=== PATIENT | male | born 1940 | race Caucasian/White ===

== ENCOUNTER 2016-10-23 11:01 | Emergency (ER) | payer OTHER ==
[~2016-10-23] VITALS: Ht 185.4 cm; Wt 112.0 kg
[2016-10-23] VITALS (17 sets, daily range): BP systolic 99–141; BP diastolic 56–82; PULSE 63–78; RESP 15–17; TEMP 77.8–98.2; O2SAT 95–100
[2016-10-23] MEDS ORDERED: ONDANSETRON HCL 4 MG/2 ML VIAL IVP ONE (11:15)
--- NOTE | 2016-10-23 11:26 | PD ---
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 He states while waiting for his transfusion there is issues with insurance and he became stressed out and began having central chest pressure. It did not radiate. He' s had some associated nausea. He has reports of some dyspnea with this as well. It was not exertional. He takes baby aspirin nightly, was not given any nitroglycerin or other medications by EMS. This self resolved. He currently has nausea but denies any other symptoms. He has chronic pedal edema without any acute worsening. History of CABG 5. Last hemoglobin was performed last week and was 7.9. Dr. Zimmer his oncologist has been trying to decrease the transfusions and the patient has had dizziness/lightheadedness without syncope, DYKES and fatigue. No acute worsening. He denies any bruising or hematochezia or melena. Patient denies fever cough and respiratory infectious symptoms. PFSH Past Medical History Hx Anticoagulant Therapy: Yes (81 MG ASA ) Cardiovascular Problems: Yes (BYPASS ) Chemotherapy: Yes (07/2016) ?: Not Social History Tobacco Use: No Allergies-Medications (Allergen,Severity, Reaction): Coded Allergies: No Known Allergies (Unverified , 10/23/16) Reported Meds & Prescriptions Reported Meds & Active Scripts Active Reported Zinc Unknown Strength Tab Unknown Dose PO 2XWEEK Vitamin D3 (Cholecalciferol) Unknown Strength Tab Unknown Dose PO 2XWEEK Vitamin C (Ascorbic Acid) Unknown Strength Tab Unknown Dose PO 2XWEEK Vitamin B-12 (Cyanocobalamin) Unknown Strength Tab Unknown Dose PO 2XWEEK Exjade (Deferasirox) Unknown Strength Tab Unknown Dose PO DAILY Do not chew/swallow tablets whole. Completely disperse tablets in water, orange or apple juice (use 3.5 ounces for total doses <1 g; 7 ounces for doses =1 g). Linzess (Linaclotide) 145 Mcg Cap 145 Mcg PO DAILY Furosemide 40 Mg Tab 40 Mg PO DAILY PRN Trazodone (Trazodone HCl) 100 Mg Tab 100 Mg PO HS Tamsulosin (Tamsulosin HCl) 0.4 Mg Cap 0.4 Mg PO HS Pravastatin 20 Mg Tab 20 Mg PO HS Nitrostat SL (Nitroglycerin) 0.4 Mg Subl 0.4 Mg SL DIRECTED PRN 1 tablet under the tongue as needed for chest pain. Repeat every 5 minutes for a total of 3 DOSES or call 911 if NO relief. Isosorbide Mononitrate ER (Isosorbide Mononitrate) 30 Mg Corbin 30 Mg PO DAILY Dexilant (Dexlansoprazole) 60 Mg Cap 60 Mg PO DAILY Cipro (Ciprofloxacin HCl) 250 Mg Tab 250 Mg PO DAILY Aspirin 81 Mg Tabdr 81 Mg PO HS Review of Systems Except as stated in HPI: all other systems reviewed are Neg Physical Exam Narrative GENERAL: Well-developed and well-nourished adult male in no acute distress. SKIN: Warm and dry. Good turgor without tenting. HEAD: Normocephalic and atraumatic. EYES: PERRL bilaterally, 5mm. EOMI bilaterally. Paleness of the bilateral conjunctiva. No injection or icterus present. No proptosis. Lids without edema or erythema. ENT: Buccal mucosa pink and moist. Oropharynx free of erythema, tonsillar hypertrophy, masses, swelling, asymmetry and exudates. Uvula midline and airway patent. NECK: Supple, no midline tenderness, crepitus or step-offs. Trachea midline, no JVD. No cervical or facial lymphadenopathy. CARDIOVASCULAR: Regular rate and rhythm without murmurs, rubs, clicks or gallops. Radial and dorsalis pedis pulses 2+ bilaterally. Bilateral 1+ pedal edema. RESPIRATORY: Clear to auscultation bilaterally with symmetrical rise and fall, no distress or use of accessory muscles. GASTROINTESTINAL: Non-tender, non-distended. Normal bowel sounds all 4 quadrants. No masses or organomegaly present. MUSCULOSKELETAL: Patient freely moving all four extremities spontaneously. Extremities without clubbing, cyanosis, or edema. No obvious deformities. NEUROLOGIC: CN II-XII grossly intact. Awake and alert. Motor grossly within normal limits. Normal speech. PSYCHIATRIC: Appropriate mood and affect; insight and judgment normal. Data Data Last Documented VS Vital Signs Date Time Temp Pulse Resp B/P Pulse Ox O2 Delivery O2 Flow Rate FiO2 10/23/16 18:30 97.8 70 16 121/76 98 Nasal Cannula 2 Orders Electrocardiogram (10/23/16 ) Type And Screen (10/23/16 11:14) Ondansetron Inj (Zofran Inj) (10/23/16 11:15) B-Type Natriuretic Peptide (10/23/16 11:14) Ckmb (Isoenzyme) Profile (10/23/16 11:14) Complete Blood Count With Diff (10/23/16 11:14) Comprehensive Metabolic Panel (10/23/16 11:14) Magnesium (Mg) (10/23/16 11:14) Prothrombin Time / Inr (Pt) (10/23/16 11:14) Act Partial Throm Time (Ptt) (10/23/16 11:14) Troponin I (10/23/16 11:14) Lipase (10/23/16 11:14) Ecg Monitoring (10/23/16 11:14) Bilateral Bp Monitoring (10/23/16 11:14) Iv Access Insert/Monitor (10/23/16 11:14) Oximetry (10/23/16 11:14) Chest, Pa & Lat (10/23/16 11:14) Red Blood Cells (Rbc) (10/23/16 12:46) Blood Product Administration .UPON TRANSFUSION (10/23/16 12:46) Sodium Chlor 0.9% 250 Ml Inj (Ns 250 Ml (10/23/16 13:00) Ondansetron Inj (Zofran Inj) (10/23/16 13:00) Diet 2000 Ada Cons Carb (10/23/16 Dinner) Troponin I (10/23/16 14:30) Ckmb (Isoenzyme) Profile (10/23/16 14:30) Troponin I (10/23/16 17:12) Electrocardiogram (10/23/16 ) Heparin Central Flush (Heparin Central F (10/23/16 19:45) Labs Laboratory Tests Test 10/23/16 10/23/16 10/23/16 10/23/16 11:10 11:30 12:50 14:07 Blood Type A POSITIVE A POSITIVE Antibody Screen NEGATIVE Blood Bank Comment White Blood Count 3.1 TH/MM3 Red Blood Count 2.45 MIL/MM3 Hemoglobin 6.9 GM/DL Hematocrit 19.8 % Mean Corpuscular Volume 80.9 FL Mean Corpuscular Hemoglobin 28.1 PG Mean Corpuscular Hemoglobin 34.7 % Concent Red Cell Distribution Width 14.7 % Platelet Count 257 TH/MM3 Mean Platelet Volume 9.0 FL Neutrophils (%) (Auto) 33.7 % Lymphocytes (%) (Auto) 50.0 % Monocytes (%) (Auto) 11.7 % Eosinophils (%) (Auto) 3.9 % Basophils (%) (Auto) 0.7 % Neutrophils # (Auto) 1.1 TH/MM3 Lymphocytes # (Auto) 1.6 TH/MM3 Monocytes # (Auto) 0.4 TH/MM3 Eosinophils # (Auto) 0.1 TH/MM3 Basophils # (Auto) 0.0 TH/MM3 CBC Comment DIFF FINAL Differential Comment Prothrombin Time 11.5 SEC Prothromb Time International 1.0 RATIO Ratio Activated Partial 29.6 SEC Thromboplast Time Sodium Level 140 MEQ/L Potassium Level 3.9 MEQ/L Chloride Level 106 MEQ/L Carbon Dioxide Level 23.9 MEQ/L Anion Gap 10 MEQ/L Blood Urea Nitrogen 22 MG/DL Creatinine 1.33 MG/DL Estimat Glomerular Filtration 52 ML/MIN Rate Random Glucose 108 MG/DL Calcium Level 8.6 MG/DL Magnesium Level 2.3 MG/DL Total Bilirubin 0.8 MG/DL Aspartate Amino Transf 11 U/L (AST/SGOT) Alanine Aminotransferase 28 U/L (ALT/SGPT) Alkaline Phosphatase 87 U/L Total Creatine Kinase 60 U/L Troponin I LESS THAN 0.02 NG/ML B-Type Natriuretic Peptide 181 PG/ML Total Protein 6.3 GM/DL Albumin 3.6 GM/DL Lipase 85 U/L Crossmatch Leukocyte-Reduced Red Blood Cells Test 10/23/16 10/23/16 14:12 17:50 Total Creatine Kinase 55 U/L Troponin I LESS THAN 0.02 LESS THAN 0.02 NG/ML NG/ML [facility] Medical Decision Making Medical Screen Exam Complete: Yes Emergency Medical Condition: Yes Differential Diagnosis Symptomatic anemia versus ACS versus CHF versus arrhythmia versus hypoglycemia versus pneumonia Narrative Course Patient 76-year-old male with history of CAD and MDS who is brought by EMS after he was waiting for a blood transfusion for symptomatic anemia and developed chest pain and shortness of breath. Some nausea as well which is still present, all the other symptoms have resolved. Last hemoglobin was 7.9 week prior. He denies any bleeding or easy bruising. Aspirin 81 mg daily. He is not tachycardic. BP is 108/59, an MAP of 75. His EKG shows PACs and PVCs with RBBB. No ST elevations. There is no prior ECG for comparison. We're type and screen, CBC, lipase, troponin, CK-MB, BMP and chest x-ray. CBC shows H &H 6.9/19.8. CBC 3.1. Platelets 257. I spoke with Dr. Zimmer the patient's oncologist who recommends 1 unit of PRBCs nonirradiated. He states that from a hematology perspective the patient is able to be discharged with follow-up outpatient, patient has an appointment in 3 days. CK-MB normal, troponin less than 0.02. BNP 181. Chest x-ray shows mild Cardiomegaly with No Signs of Overt Heart Failure. BUN 22, Creatinine 1.33, Glucose 108. Discussed these results with the patient and recommended admission given his history of CAD with chest pressure and dyspnea. Discussed with Dr. Woo as well who believes this is reasonable. The patient states that these are symptoms he frequently gets with his anemia and he is not concerned and does not want to be admitted. I stated the patient that this certainly have some of these symptoms with his anemia however failure to stay for admission results and or permanent disability if he were having a early NE. Hemostasis understanding and is capable of making this decision. He did agree to trend his values as we are still waiting for his continued to be transfused. Repeat troponin is still less than 0.02. EKG shows no changes. He finished the unit and still declines admission. Will return if develops new or worsening symptoms.See discharge paperwork for further instructions. The plan was discussed with the patient who acknowledged their understanding and agreement. Reinforced the follow-up with primary care is critically important. Patient instructed on emergent conditions that should prompt return to ED. Diagnosis Primary Impression: Symptomatic anemia Additional Impressions: Chest pain Qualified Code: R07.9 - Chest pain, unspecified type Myelodysplastic syndrome Patient Instructions: Anemia (ED), Chest Pain (ED), General Instructions Additional Instructions: Continue your home medications as prescribed Follow-up with your oncologist/electronic parts designer on as scheduled Follow-up with her culture manager in 1-2 days Return to the ED for any acute worsening of symptoms or any chest pain, shortness of breath or dizziness Disposition: 01 DISCHARGE HOME Condition: Stable Nabor Goldstein III Oct 23, 2016 11:26
--- NOTE | 2016-10-23 12:11 | RADRPT ---
EXAM DATE/TIME: 10/23/2016 12:04 [facility] COMPARISON: No previous studies available for comparison. INDICATIONS: Short of breath with chest pains. Prior CABG MEDICAL HISTORY: Myocardial infarction. SURGICAL HISTORY: CABG. Infusaport right side. ENCOUNTER: Initial ACUITY: 3 days PAIN SCORE: 8/10 LOCATION: Bilateral chest FINDINGS: Infusaport is in good position. Heart is enlarged. Pulmonary vascularity is normal. There is no al veolar consolidation, pleural effusion or pneumothorax. Sternal wires from previous median sternotom y are noted. CONCLUSION: Evidence for previous bypass. Mild compensated cardiomegaly, negative for an acute process. Sagar Vuong MD FACR on October 23, 2016 at 12:05 Board Certified Radiologist. This report was verified electronically.
[2016-10-23 12:29] LABS: AUTOMATED NEUTROPHIL # 1.1 TH/MM3 (1.8-7.7); BASOPHIL % 0.7 % (0.0-2.0); EOSINOPHIL # 0.1 TH/MM3 (0-0.4); EOSINOPHIL % 3.9 % (0.0-4.0); HEMO FLAGS DIFF FINAL; LYMPHOCYTE # 1.6 TH/MM3 (1.0-4.8); MEAN CELL VOLUME 80.9 FL (80.0-100.0); MEAN CORPUSCULAR HEMOGLOBIN 28.1 PG (27.0-34.0); MEAN CORPUSCULAR HGB CONC 34.7 % (32.0-36.0); MONO % 11.7 % (0.0-8.0); NEUT % 33.7 % (16.0-70.0); PLATELET COUNT 257 TH/MM3 (150-450); RED BLOOD COUNT 2.45 MIL/MM3 (4.50-5.90); RED CELL DISTRIBUTION WIDTH 14.7 % (11.6-17.2); WHITE BLOOD COUNT 3.1 TH/MM3 (4.0-11.0)
[2016-10-23 12:34] LABS: HEMATOCRIT 19.8 % (39.0-51.0)
[2016-10-23] MEDS ORDERED: ASPI1TAB69 PO (12:37)
[2016-10-23] MEDS ORDERED: DEXI60CA PO (12:37)
[2016-10-23] MEDS ORDERED: ISOS30TA3 PO (12:37)
[2016-10-23] MEDS ORDERED: CIPR250T52 PO (12:37)
[2016-10-23] MEDS ORDERED: NITR0.4S SL (12:37)
[2016-10-23 12:39] LABS: APTT (PATIENT) 29.6 SEC (24.3-30.1); PROTHROMBIN TIME - PATIENT 11.5 SEC (9.8-11.6)
[2016-10-23] MEDS ORDERED: TRAZ100T4 PO (12:39)
[2016-10-23] MEDS ORDERED: PRAV20TA2 PO (12:39)
[2016-10-23] MEDS ORDERED: TAMS0.4C4 PO (12:39)
[2016-10-23 12:45] LABS: ANION GAP 10 MEQ/L (5-15); AST (GOT) 11 U/L (15-37); BICARBONATE 23.9 MEQ/L (21.0-32.0); BLOOD UREA NITROGEN 22 MG/DL (7-18); CHLORIDE 106 MEQ/L (98-107); GLOMERULAR FILTRATION RATE 52 ML/MIN (>89); MAGNESIUM 2.3 MG/DL (1.5-2.5); POTASSIUM 3.9 MEQ/L (3.5-5.1); SODIUM (NA) 140 MEQ/L (136-145)
[2016-10-23 12:50] LABS: ALKALINE PHOSPHATASE 87 U/L (45-117); ALT (GPT) 28 U/L (12-78); TOTAL BILIRUBIN ADULT 0.8 MG/DL (0.2-1.0)
[2016-10-23] MEDS ORDERED: LINA145C PO (12:51)
[2016-10-23] MEDS ORDERED: FURO40TA PO (12:51)
[2016-10-23] MEDS ORDERED: SODIUM CHLOR 0.9% 250 ML INJ 250 ML IV ONE (13:00)
[2016-10-23] MEDS ORDERED: ONDANSETRON HCL 4 MG/2 ML VIAL IV PUSH ONE (13:00)
[2016-10-23 13:07] LABS: CREATINE KINASE 60 U/L (39-308)
[2016-10-23] MEDS ORDERED: [UNRECOGNIZED DRUG - CODE] PO (13:12)
[2016-10-23] MEDS ORDERED: VITA250T5 PO (13:13)
[2016-10-23] MEDS ORDERED: VITA500T PO (13:14)
[2016-10-23] MEDS ORDERED: ZINC25TA PO (13:15)
[2016-10-23] MEDS ORDERED: VITA100018 PO (13:15)
[2016-10-23 14:45] LABS: CREATINE KINASE 55 U/L (39-308)
--- NOTE | 2016-10-23 15:14 | PD ---
Physical Exam Date Seen by Provider: Oct 23, 2016 Time Seen by Provider: 13:30 Narrative I, Dr. Silva, have reviewed the advance practice practitioner's documentation and am in agreement, met with the patient face to face, made the diagnosis, and the medical decision making was done by me. *My assessment and Findings: Patient seen and evaluated with PA, please see PA for further details. Here with chest discomfort and shortness of breath, known anemia which is chronic in nature, patient is post to be getting a blood transfusion. Lab work shows significant anemia and PRBCs have been ordered for the patient. Case was discussed with patient's oncologist. Metabolic panel is unremarkable. Cardiac enzymes are negative. EKG did not show any signs of acute changes. Patient does not appear to be in any distress in the ER and vital signs are stable. In addition, due to his chest discomfort and shortness of breath symptoms, we have offered to admit the patient for further evaluation of his chest pain symptoms. Patient at this time states that he feels better and does not want further workup regarding this issue right now. He suspects is secondary to his anemia. We have talked him regarding the fact that underlying cardiac processes cannot be ruled out. Patient states understanding. He should return for any worsening in symptoms or new issues as needed. Data Data Last Documented VS Vital Signs Date Time Temp Pulse Resp B/P Pulse Ox O2 Delivery O2 Flow Rate FiO2 10/23/16 13:21 65 16 123/71 100 Nasal Cannula 2 10/23/16 11:06 97.8 Orders Electrocardiogram (10/23/16 ) Type And Screen (10/23/16 11:14) Ondansetron Inj (Zofran Inj) (10/23/16 11:15) B-Type Natriuretic Peptide (10/23/16 11:14) Ckmb (Isoenzyme) Profile (10/23/16 11:14) Complete Blood Count With Diff (10/23/16 11:14) Comprehensive Metabolic Panel (10/23/16 11:14) Magnesium (Mg) (10/23/16 11:14) Prothrombin Time / Inr (Pt) (10/23/16 11:14) Act Partial Throm Time (Ptt) (10/23/16 11:14) Troponin I (10/23/16 11:14) Lipase (10/23/16 11:14) Ecg Monitoring (10/23/16 11:14) Bilateral Bp Monitoring (10/23/16 11:14) Iv Access Insert/Monitor (10/23/16 11:14) Oximetry (10/23/16 11:14) Chest, Pa & Lat (10/23/16 11:14) Red Blood Cells (Rbc) (10/23/16 12:46) Blood Product Administration .UPON TRANSFUSION (10/23/16 12:46) Sodium Chlor 0.9% 250 Ml Inj (Ns 250 Ml (10/23/16 13:00) Ondansetron Inj (Zofran Inj) (10/23/16 13:00) Diet 2000 Ada Cons Carb (10/23/16 Dinner) Troponin I (10/23/16 14:30) Ckmb (Isoenzyme) Profile (10/23/16 14:30) Labs Laboratory Tests Test 10/23/16 10/23/16 10/23/16 10/23/16 11:10 11:30 12:50 14:07 Blood Type A POSITIVE A POSITIVE Antibody Screen NEGATIVE Blood Bank Comment White Blood Count 3.1 TH/MM3 Red Blood Count 2.45 MIL/MM3 Hemoglobin 6.9 GM/DL Hematocrit 19.8 % Mean Corpuscular Volume 80.9 FL Mean Corpuscular Hemoglobin 28.1 PG Mean Corpuscular Hemoglobin 34.7 % Concent Red Cell Distribution Width 14.7 % Platelet Count 257 TH/MM3 Mean Platelet Volume 9.0 FL Neutrophils (%) (Auto) 33.7 % Lymphocytes (%) (Auto) 50.0 % Monocytes (%) (Auto) 11.7 % Eosinophils (%) (Auto) 3.9 % Basophils (%) (Auto) 0.7 % Neutrophils # (Auto) 1.1 TH/MM3 Lymphocytes # (Auto) 1.6 TH/MM3 Monocytes # (Auto) 0.4 TH/MM3 Eosinophils # (Auto) 0.1 TH/MM3 Basophils # (Auto) 0.0 TH/MM3 CBC Comment DIFF FINAL Differential Comment Prothrombin Time 11.5 SEC Prothromb Time International 1.0 RATIO Ratio Activated Partial 29.6 SEC Thromboplast Time Sodium Level 140 MEQ/L Potassium Level 3.9 MEQ/L Chloride Level 106 MEQ/L Carbon Dioxide Level 23.9 MEQ/L Anion Gap 10 MEQ/L Blood Urea Nitrogen 22 MG/DL Creatinine 1.33 MG/DL Estimat Glomerular Filtration 52 ML/MIN Rate Random Glucose 108 MG/DL Calcium Level 8.6 MG/DL Magnesium Level 2.3 MG/DL Total Bilirubin 0.8 MG/DL Aspartate Amino Transf 11 U/L (AST/SGOT) Alanine Aminotransferase 28 U/L (ALT/SGPT) Alkaline Phosphatase 87 U/L Total Creatine Kinase 60 U/L Troponin I LESS THAN 0.02 NG/ML B-Type Natriuretic Peptide 181 PG/ML Total Protein 6.3 GM/DL Albumin 3.6 GM/DL Lipase 85 U/L Crossmatch Leukocyte-Reduced Red Blood Cells Test 10/23/16 14:12 Total Creatine Kinase 55 U/L Troponin I LESS THAN 0.02 NG/ML [facility] Medical Record Reviewed: Yes Supervised Visit with DAVID: Yes Diagnosis Primary Impression: Symptomatic anemia Disposition: 01 DISCHARGE HOME Condition: Stable Martha Silva MD Oct 23, 2016 15:14
--- NOTE | 2016-10-24 14:15 | EKG ---
Date Performed: 10/23/2016 Time Performed: 17:46:44 PTAGE: 76 years EKG: Sinus rhythm WITH FIRST DEGREE AV BLOCK RIGHT BUNDLE BRANCH BLOCK ABNORMAL ECG Since PREVIOUS TRACING , no significant change noted PREVIOUS TRACIN10/23/2016 11.05 DOCTOR: Hector Julio Interpretating Date/Time 10/24/2016 14:06:49
--- NOTE | 2016-10-24 14:15 | EKG ---
Date Performed: 10/23/2016 Time Performed: 11:05:42 PTAGE: 76 years EKG: Sinus rhythm WITH OCCASIONAL VENTRICULAR PREMATURE COMPLEXES WITH MARKED RHYTHM IRREGULARITY, POSSIBLE NON-CONDUC DMITRY PAC, SA BLOCK, AV BLOCK, OR SINUS PAUSE RIGHT BUNDLE BRANCH BLOCK ABNORMAL ECG NO PREVIOUS TRACING DOCTOR: Hector Julio Interpretating Date/Time 10/24/2016 14:06:42
== END 2016-10-23 20:31 | disposition home or self-care (01) ==
LOC: NEPC 11:01
DX: D64.89 Other specified anemias (principal); R07.9 Chest pain, unspecified; D46.9 Myelodysplastic syndrome, unspecified; R06.02 Shortness of breath; R11.0 Nausea; R60.0 Localized edema; R94.31 Abnormal electrocardiogram [ECG] [EKG]; I25.10 Atherosclerotic heart disease of native coronary artery without angina pectoris; Z79.82 Long term (current) use of aspirin; Z95.1 Presence of aortocoronary bypass graft
CPT/HCPCS: 36430; 71020; 80053; 82550; 83690; 83735; 83880; 84484; 85025; 85610; 85730; 86850; 86900; 86901; 86920; 93005; 96361; 96374; 96376; 99285; J1642; J2405; J7050; P9016